=== PATIENT | male | born 1980 | race Caucasian/White ===

== ENCOUNTER 2018-08-30 20:41 | Emergency (ER) | payer OTHER ==
[2018-08-30 20:47] VITALS: BP 146/95
--- NOTE | 2018-08-30 20:56 | ED Physician Documentation ---
PD HPI LOWER EXT INJURY - Stated complaint Stated Complaint: TOE INJURY - Chief complaint Chief Complaint: Ext Problem - History obtained from History obtained from: Patient - History of Present Illness PD HPI LOW EXT INJURY LOCATION: Right, Toe Type of injury: Other (Stepping over a baby gate at home this morning he accidentally kicked the wall with his right pinky toe and has persistent pain there. No other injury.) Review of Systems Constitutional: reports: Reviewed and negative Cardiac: reports: Reviewed and negative Respiratory: reports: Reviewed and negative PD PAST MEDICAL HISTORY - Past Medical History Past Medical History: Yes - Past Surgical History Ortho: ACL reconstruction, Other - Present Medications Home Medications: Ambulatory Orders Medication Instructions Recorded Confirmed No Known Home Medications 08/30/18 08/30/18 - Allergies Allergies/Adverse Reactions: Allergies Allergy/AdvReac Type Severity Reaction Status Date / Time No Known Drug Allergies Allergy Verified 08/30/18 20:47 - Social History Does the pt smoke?: No Smoking Status: Never smoker Does the pt drink ETOH?: Yes Does the pt have substance abuse?: No - Immunizations Immunizations are current?: Yes - POLST Patient has POLST: No PD ED PE NORMAL - Vitals Vital signs reviewed: Yes - General General: Alert and oriented X 3, No acute distress - Extremities Extremities: Other (On the proximal phalanx of the right little toe there is a lot of ecchymosis specially on the medial side and tenderness there. No deformity.) - Neuro Neuro: Alert and oriented X 3, Normal speech Results - Vitals Vitals: Vital Signs - 24 hr 08/30/18 20:44 Temperature 36.3 C L Heart Rate 55 L Respiratory 16 Rate Blood Pressure 146/95 H O2 Saturation 100 Oxygen O2 Source Room air - Rads (name of study) R small toe Radiology: EMP read contemporaneously (non displaced prox phalanx frx) Procedures - Splint (location) R 5th toe Splint applied by: Tech Type of splint: Other (corona taped to 4th toe) Other: Patient tolerated well, No complications, Neurovascular intact Departure - Departure Disposition: 01 Home, Self Care Clinical Impression: Toe fracture, right Condition: Good Record reviewed to determine appropriate education?: Yes Instructions: ED Fx Toe Closed Comments: Your blood pressure was elevated today on check into the emergency department. This does not mean that you have hypertension, it is a common phenomenon to come to the emergency department and have elevated blood pressure. I recommend that you see your primary care physician within the week to have it rechecked when you are feeling better. Forms: Activity restrictions Discharge Date/Time: 08/30/18 21:12
--- NOTE | 2018-08-30 21:31 | XRAY Report ---
Reason: 5th toe inj Procedure Date: 08/30/2018 Accession Number: [id number] / [id number] Procedure: XR - Toe(s) RT CPT Code: FULL RESULT: EXAM: RIGHT FIFTH TOE RADIOGRAPHY EXAM DATE: 08/30/2018 09:04 PM. CLINICAL HISTORY: Trauma, pain. COMPARISON: None. TECHNIQUE: 3 views. FINDINGS: Bones: Nondisplaced oblique fracture through the fifth proximal phalangeal midshaft. Otherwise unremarkable. Joints: Normal. No subluxations. Soft Tissues: Mild soft tissue swelling. IMPRESSION: Nondisplaced fifth proximal phalangeal fracture. RADIA
== END 2018-08-30 21:12 | disposition home or self-care (01) ==
LOC: ED 20:41
DX: S92.514A Nondisplaced fracture of proximal phalanx of right lesser toe(s), initial encounter for closed fracture (principal); W22.01XA Walked into wall, initial encounter; Y93.89 Activity, other specified; Y92.009 Unspecified place in unspecified non-institutional (private) residence as the place of occurrence of the external cause; R03.0 Elevated blood-pressure reading, without diagnosis of hypertension
CPT/HCPCS: 73660; 99282

== ENCOUNTER 2019-05-19 06:51 | Outpatient (CLI) | payer OTHER ==
--- NOTE | 2019-05-19 16:36 | MRI Report ---
Reason: RT SHOULDER PAIN Procedure Date: 05/19/2019 Accession Number: [id number] / [id number] Procedure: MRI - Shoulder RT W/O CPT Code: FULL RESULT: EXAM: RIGHT SHOULDER MRI WITHOUT CONTRAST EXAM DATE: 05/19/2019 08:02 AM. CLINICAL HISTORY: Right shoulder pain. COMPARISON: None. TECHNIQUE: Multiplanar, multisequence T1-weighted and fluid-sensitive sequences of the shoulder without contrast. Other: None. FINDINGS: Acromioclavicular Region: The acromion is type II unipartite. AC joint is moderately osteoarthritic. The coracoacromial and coracoclavicular ligaments are intact. Small amount of subacromial fluid. Glenohumeral Region: No subluxation. No effusion or loose bodies. The articular cartilage is unremarkable. The glenohumeral ligaments and joint capsule are unremarkable. Bone Marrow: Tiny chondral cystic changes seen superior lateral aspect humeral head. Doubtful consequence. Labrum: Posterior superior undersurface full-thickness labral tear with a small paralabral cyst. There is a type II SLAP configuration present. This does not extend into the spinoglenoid notch. Also noted is a benign-appearing sublabral hole, series 401 image 14. Musculature/Rotator Cuff: Is some thickening of the subscapularis, supraspinatus and infraspinatus portion of the rotator cuff, teres minor is normal. No partial or full-thickness tears are seen. No edema or fatty atrophy. Biceps Tendon: The long head of the biceps tendon and biceps cris are intact. Other: None. IMPRESSION: 1. Type II unipartite undersurface osseous acromion shape. AC joint is moderately osteoarthritic. Small amount of bursal fluid is present. Moderate bursitis. 2. Some thickening of the subscapularis, supraspinatus and infraspinatus portion of the rotator cuff, compatible with moderate tendinitis, no tear. 3. Long head biceps tendon appears unremarkable. 3. Posterior superior undersurface full-thickness labral tear with a small paralabral cyst which does not extend to the spinoglenoid notch. There is a type II SLAP configuration Also noted is a benign-appearing sublabral hole anteriorly. 5. Long head biceps tendon appears normal. RADIA
== END 2019-05-19 06:52 | disposition home or self-care (01) ==
LOC: DI 06:51
DX: M19.011 Primary osteoarthritis, right shoulder (principal); S43.431A Superior glenoid labrum lesion of right shoulder, initial encounter; M75.51 Bursitis of right shoulder; M75.81 Other shoulder lesions, right shoulder

== ENCOUNTER 2019-08-08 21:00 | Emergency (ER) | payer OTHER ==
[2019-08-08 21:09] VITALS: BP 137/84
[2019-08-08] MEDS ORDERED: SULFAMETH/TRIMETH DS 800/160 MG TABLET PO STA (21:47)
[2019-08-08] MEDS ORDERED: cephALEXin 250 MG CAPSULE PO STA (21:47)
--- NOTE | 2019-08-11 16:01 | ED Physician Documentation ---
PD HPI UPPER EXT INJURY - Stated complaint Stated Complaint: LT ARM PX/RED - Chief complaint Chief Complaint: Wound - History obtained from History obtained from: Patient - History of Present Illness Location: Left, Elbow Type of injury: Fall Where injury occurred: Home Timing - onset: How many weeks ago (1) Timing - details: Gradual onset Pain level now: 5 Improved by: Rest Worsened by: Moving, Palpating Associated symptoms: Swelling, Discolored Contributing factors: No: Anticoagulated Similar symptoms before: No: Has not had sx before Recently seen: Not recently seen - Additonal information Additional information: slipped and fell 1 week ago at home, left elbow struck tile floor. he has had gradually worsening pain, swelling, redness since then, rapidly worsening past 2 days Review of Systems Constitutional: denies: Fever, Chills, Sweats Musculoskeletal: reports: Joint pain, Joint swelling Neurologic: denies: Focal weakness, Numbness PD PAST MEDICAL HISTORY - Past Medical History Past Medical History: No - Past Surgical History Ortho: ACL reconstruction, Other - Present Medications Home Medications: Ambulatory Orders Medication Instructions Recorded Confirmed Cephalexin [Keflex] 500 mg PO Q6H #28 capsule 08/08/19 Sulfamethox/Trimeth 800/160 1 each PO BID #14 tablet 08/08/19 [Bactrim Ds] - Allergies Allergies/Adverse Reactions: Allergies Allergy/AdvReac Type Severity Reaction Status Date / Time No Known Drug Allergies Allergy Verified 08/08/19 21:09 - Social History Does the pt smoke?: No Smoking Status: Never smoker Does the pt drink ETOH?: Yes Does the pt have substance abuse?: No - Immunizations Immunizations are current?: Yes - POLST Patient has POLST: No PD ED PE NORMAL - Vitals Vital signs reviewed: Yes - General General: Alert and oriented X 3, No acute distress, Well developed/nourished - Neuro Neuro: No motor deficit, No sensory deficit PD ED PE EXPANDED - Extremities Extremities: Other (Skin overlying left elbow is red, hot, swollen. There is a small abrasion located centrally inside the borders of the erythema. The elbow joint is no tender with intact rom. ). No: Limited ROM (left elbow has FROM, but pain worse with extreme flexion) Results - Vitals Vitals: Oxygen O2 Source Room air PD MEDICAL DECISION MAKING - ED course Complexity details: considered differential, d/w patient Departure - Departure Disposition: Home, Self Care Clinical Impression: Cellulitis of left elbow Condition: Good Instructions: ED Infec Skin Cellulitis Prescriptions: Cephalexin [Keflex] 500 mg PO Q6H #28 capsule Sulfamethox/Trimeth 800/160 [Bactrim Ds] 1 each PO BID #14 tablet Comments: Follow up with your primary care provider in 2-3 days for recheck Discharge Date/Time: 08/08/19 22:00
== END 2019-08-08 22:00 | disposition home or self-care (01) ==
LOC: ED 21:00
DX: L03.114 Cellulitis of left upper limb (principal); S50.312A Abrasion of left elbow, initial encounter; W01.0XXA Fall on same level from slipping, tripping and stumbling without subsequent striking against object, initial encounter; Y92.009 Unspecified place in unspecified non-institutional (private) residence as the place of occurrence of the external cause
CPT/HCPCS: 99282; 99283; A9270

== ENCOUNTER 2020-03-08 06:55 | Outpatient (CLI) | payer OTHER ==
--- NOTE | 2020-03-08 15:09 | MRI Report ---
PROCEDURE: Cervical Spine W/O INDICATIONS: ANESTHESIA OF SKIN TECHNIQUE: Noncontrast sagittal T1 spin echo and T2 fast spin echo, sagittal STIR, foraminal oblique sagittal T2 fast spin echo, and axial gradient echo or T2 fast spin echo through the cervical spine. COMPARISON: None. FINDINGS: Image quality: Excellent. Alignment and Curvature: There is loss of normal cervical lordosis. Alignment is otherwise normal. Bone Marrow: Marrow demonstrates normal overall signal. Minimal reactive signal within the endplate s adjacent to the C4-C5 intervertebral disc. Spinal Cord: Visualized spinal cord has normal size and signal. No cerebellar tonsillar herniation. Paraspinous Soft Tissues: No paravertebral masses. Prevertebral soft tissues are normal in thicknes s. C2-C3: Normal in appearance. C3-C4: Normal in appearance. C4-C5: Mild disc desiccation. Mild bilateral facet hypertrophy. No significant canal stenosis. Mild left foraminal stenosis. No right foraminal stenosis. C5-C6: Mild disc desiccation. Mild diffuse disc bulge. Mild bilateral facet and uncovertebral hypert rophy. Minimal canal stenosis. Mild left foraminal stenosis. No right foraminal stenosis. C6-C7: Minimal disc desiccation. Mild bilateral facet hypertrophy. No significant canal, nor foramin al stenosis. C7-T1: Normal in appearance. IMPRESSION: 1. Multilevel degenerative disc and facet disease, as well as uncovertebral hypertrophy. 2. Mild multilevel canal and foraminal stenoses. No neural impingement Reviewed by: María Flowers MD on 03/08/2020 3:07 PM PDT Approved by: María Flowers MD on 03/08/2020 3:07 PM PDT Station ID: [id number]
== END 2020-03-08 06:56 | disposition home or self-care (01) ==
LOC: DI 06:55
DX: M50.322 Other cervical disc degeneration at C5-C6 level (principal); M48.02 Spinal stenosis, cervical region; R20.0 Anesthesia of skin
CPT/HCPCS: 72141

== ENCOUNTER 2020-03-18 18:37 | Emergency (ER) | payer OTHER ==
--- NOTE | 2020-03-18 19:27 | ED Physician Documentation ---
History of Present Illness - Stated complaint Stated Complaint: RT FINGER LAC - Chief complaint Chief Complaint: General - History obtained from History obtained from: Patient - History of Present Illness Timing: Today Pain level max: 2 Pain level now: 1 - Additonal information Additional information: 39-year-old right-handed male presents to the Emergency department after slamming his right index finger in a car door. Has a laceration across the nail plate. Mild numbness to the distal aspect of the finger. Tetanus up-to-date. Nothing makes it better or worse. Review of Systems Constitutional: denies: Fever Musculoskeletal: denies: Neck pain, Back pain Neurologic: denies: Head injury PD PAST MEDICAL HISTORY - Past Medical History Past Medical History: No - Past Surgical History Past Surgical History: Yes Ortho: ACL reconstruction, Other - Present Medications Home Medications: Ambulatory Orders Medication Instructions Recorded Confirmed Cephalexin [Keflex] 500 mg PO Q6H #28 capsule 08/08/19 Sulfamethox/Trimeth 800/160 1 each PO BID #14 tablet 08/08/19 [Bactrim Ds] Cephalexin [Keflex] 500 mg PO Q6H #28 capsule 03/18/20 - Allergies Allergies/Adverse Reactions: Allergies Allergy/AdvReac Type Severity Reaction Status Date / Time No Known Drug Allergies Allergy Verified 08/08/19 21:09 - Social History Does the pt smoke?: No Smoking Status: Never smoker Does the pt drink ETOH?: Yes Does the pt have substance abuse?: No - Immunizations Immunizations are current?: Yes - POLST Patient has POLST: No PD ED PE NORMAL - Vitals Vital signs reviewed: Yes - General General: Alert and oriented X 3, No acute distress, Well developed/nourished - Derm Derm: Warm and dry - Neuro Neuro: Alert and oriented X 3 - Psych Psych: Normal mood, Normal affect PD ED PE EXPANDED - Extremities SALVADOR UE/Hands Visual: 1 - laceration (1cm, across the nail plate.) Results - Vitals Vitals: Vital Signs - 24 hr 03/18/20 03/18/20 18:46 20:23 Temperature 36.8 C Heart Rate 68 79 Respiratory 16 18 Rate Blood Pressure 142/92 H 139/97 H O2 Saturation 97 99 Oxygen O2 Source Room air - Rads (name of study) R index finger xray Radiology: Prelim report reviewed, EMP read contemporaneously, See rad report (Small distal tuft fracture) Procedures - Laceration (location) Right index finger Length in cm: 1 Wound type: Linear Neurovascular status: Sensory intact, Motor intact, Vascular intact Wound Preparation: Irrigated copiously NS Skin layer closure: Dermabond Other: Patient tolerated well, No complications, Neurovascular intact, Tetanus UTD Complexity: Simple PD MEDICAL DECISION MAKING - ED course Complexity details: reviewed results, re-evaluated patient, considered differential, d/w patient ED course: 39-year-old male with a right index finger laceration. Neurovascularly intact other than a small area of numbness to the distal tip of the finger. Has a laceration that is just through the nail plate, approximately midpoint. Extends across the nail. Cleansed and Dermabond applied. Finger splint utilized as well. Tetanus up-to-date. Patient counseled regarding signs and symptoms for which I believe and urgent re-evaluation would be necessary. Patient with good understanding of and agreement to plan and is comfortable going home at this time This document was made in part using voice recognition software. While efforts are made to proofread this document, sound alike and grammatical errors may occur. As he does have a fracture, we will place him on Keflex Departure - Departure Disposition: 01 Home, Self Care Clinical Impression: Finger laceration Qualifiers: Encounter type: initial encounter Finger: index finger Damage to nail status: with damage Foreign body presence: without foreign body Laterality: right Qualified Code(s): S61.310A - Laceration without foreign body of right index finger with damage to nail, initial encounter Finger fracture, right Qualifiers: Encounter type: initial encounter Finger: index finger Fracture type: open Phalanx: distal Fracture alignment: nondisplaced Qualified Code(s): S62.660B - Nondisplaced fracture of distal phalanx of right index finger, initial encounter for open fracture Condition: Good Instructions: ED Fx Finger Open, ED Laceration Hand Follow-Up: Emiliano Philippe MD [Primary Care Provider] - Prescriptions: Cephalexin [Keflex] 500 mg PO Q6H #28 capsule Comments: Follow-up with your doctor in 1 week for a wound check. Return if you worsen. The distal part of the nail will likely fall off. Wear the splint to help protect this area. Return if you notice redness, swelling or drainage from the wound Discharge Date/Time: 03/18/20 20:28
--- NOTE | 2020-03-18 19:38 | XRAY Report ---
PROCEDURE: Finger(s) RT INDICATIONS: finger vs car door. TECHNIQUE: AP hand, 2 views of the second right finger(s) acquired. COMPARISON: None FINDINGS: Bones: Distal tuft fracture, distal phalanx of second finger. No other fractures or dislocations. No suspicious bony lesions. Soft tissues: No suspicious soft tissue calcifications. IMPRESSION: Second finger distal tuft of distal phalanx fracture. Reviewed by: Tay Elizondo MD on 03/18/2020 7:36 PM PDT Approved by: Tay Elizondo MD on 03/18/2020 7:36 PM PDT Station ID: [id number]
[2020-03-18] MEDS ORDERED: IBUPROFEN 800 MG TABLET PO STA (20:11)
[2020-03-18] MEDS ORDERED: cephALEXin 250 MG CAPSULE PO STA (20:11)
[2020-03-18 20:24] VITALS: BP 139/97
== END 2020-03-18 20:28 | disposition home or self-care (01) ==
LOC: ED 18:37
DX: S62.660B Nondisplaced fracture of distal phalanx of right index finger, initial encounter for open fracture (principal); W23.1XXA Caught, crushed, jammed, or pinched between stationary objects, initial encounter
CPT/HCPCS: 12001; 73140; 99283; 99284; A9270